=== PATIENT | male | born 1960 | race Caucasian/White ===

== ENCOUNTER → 2017-06-25 | Outpatient (CLI) | payer BC ==
[2017-06-25 15:04] LABS: HCT 53.2 % (39.0-53.0); HGB 17.2 gm/dL (13.0-17.5); MCHC 32.4 g/dL (31.0-37.0); MCV 92.8 fL (80.0-100.0); Platelet Count 256 k/uL (150-450); RBC 5.73 m/uL (4.30-5.90); RDW 15.1 % (11.5-15.5); WBC 7.9 k/uL (3.8-10.6)
[2017-06-25 15:05] LABS: Appearance,Urine Clear (Clear); Bilirubin,Urine Negative (Negative); Blood,Urine Negative (Negative); Color,Urine Light Yellow; Glucose,Urine (UA) Negative (Negative); Ketones,Urine Negative (Negative); Leukocyte Esterase,Urine Negative (Negative); Nitrite,Urine Negative (Negative); PH, Urine 5.5 (5.0-8.0); Protein,Urine Negative (Negative); Specific Gravity,Urine 1.005 (1.001-1.035); Urobilinogen,Urine <2.0 mg/dL (<2.0)
[2017-06-25 15:15] LABS: Partial Thromboplastin Time 24.1 sec (22.0-30.0); Prothrombin Time 10.1 sec (9.0-12.0)
[2017-06-25 15:24] LABS: ALT 36 U/L (21-72); AST 22 U/L (17-59); Albumin 4.6 g/dL (3.5-5.0); Alkaline Phosphatase 77 U/L (38-126); Anion Gap 13 mmol/L; Blood Urea Nitrogen 16 mg/dL (9-20); Calcium 10.3 mg/dL (8.4-10.2); Carbon Dioxide 30 mmol/L (22-30); Chloride 98 mmol/L (98-107); Glucose 113 mg/dL (74-99); Sodium 141 mmol/L (137-145); Total Bilirubin 0.4 mg/dL (0.2-1.3); Total Protein 7.9 g/dL (6.3-8.2)
== END | disposition home or self-care (01) ==
LOC: LABWHC1 14:02
PROVIDERS: ATTEND Orthopaedic Surgery
DX: Z01.818 Encounter for other preprocedural examination (principal); Z01.812 Encounter for preprocedural laboratory examination
CPT/HCPCS: 80053; 81003; 85027; 85610; 85730; 93005

== ENCOUNTER → 2017-07-06 | Outpatient (CLI) | payer BC | END | disposition home or self-care (01) | LOC: LABPAT 14:40 | PROVIDERS: ATTEND Orthopaedic Surgery | DX: Z01.812 Encounter for preprocedural laboratory examination (principal) | CPT/HCPCS: 87070 ==

== ENCOUNTER → 2017-07-29 | Outpatient (CLI) | payer BC ==
[2017-07-29 15:17] LABS: HCT 49.4 % (39.0-53.0); MCH 29.5 pg (25.0-35.0); MCHC 32.4 g/dL (31.0-37.0); Mean Platelet Volume 6.5; Platelet Count 325 k/uL (150-450); RBC 5.43 m/uL (4.30-5.90); RDW 13.4 % (11.5-15.5); WBC 8.4 k/uL (3.8-10.6)
[2017-07-29 15:34] LABS: ALT 38 U/L (21-72); AST 23 U/L (17-59); Albumin 4.4 g/dL (3.5-5.0); Alkaline Phosphatase 74 U/L (38-126); Anion Gap 13 mmol/L; Blood Urea Nitrogen 20 mg/dL (9-20); Calcium 9.8 mg/dL (8.4-10.2); Carbon Dioxide 27 mmol/L (22-30); Chloride 102 mmol/L (98-107); Glucose 106 mg/dL (74-99); Partial Thromboplastin Time 23.7 sec (22.0-30.0); Potassium 4.3 mmol/L (3.5-5.1); Prothrombin Time 10.2 sec (9.0-12.0); Sodium 142 mmol/L (137-145); Total Bilirubin 0.4 mg/dL (0.2-1.3); Total Protein 7.3 g/dL (6.3-8.2)
[2017-07-29 15:51] LABS: Appearance,Urine Clear (Clear); Bilirubin,Urine Negative (Negative); Blood,Urine Trace (Negative); Color,Urine Yellow; Glucose,Urine (UA) Negative (Negative); Ketones,Urine Negative (Negative); Leukocyte Esterase,Urine Negative (Negative); Nitrite,Urine Negative (Negative); Protein,Urine Negative (Negative); RBC,Urine 1 /hpf (0-5); Specific Gravity,Urine 1.015 (1.001-1.035); Urobilinogen,Urine <2.0 mg/dL (<2.0); WBC,Urine <1 /hpf (0-5)
== END | disposition home or self-care (01) ==
LOC: LABPAT 14:40
PROVIDERS: ATTEND Orthopaedic Surgery
DX: Z01.812 Encounter for preprocedural laboratory examination (principal)
CPT/HCPCS: 36415; 80053; 81001; 85027; 85610; 85730

== ENCOUNTER → 2017-10-14 | Outpatient (CLI) | payer BC ==
--- NOTE | 2017-10-14 08:54 | CT ---
EXAMINATION TYPE: CT lumbar spine w con DATE OF EXAM: 10/14/2017 COMPARISON: Left hip radiographs dated 08/03/2017 HISTORY: Intervertebral disc disorders with radiculopathy. Evaluate L4 lesion. Prior MRI done on outs [facility]. Patient complains of left hip pain and low back pain. History of surgery to the left hip. CT DLP: 970 mGycm Automated exposure control for dose reduction was used. CONTRAST: CT scan of the lumbar is performed with IV Contrast, patient injected with 100 mL of Isovue 300. Enhanced CT of the lumbar spine was performed. Bone and soft tissue window settings are submitted as well as coronal and sagittal reconstructions. FINDINGS: The vertebral bodies maintain normal vertebral body height and alignment. With special atte ntion to the L4 level there is a questionable 6 mm area of lucency on series 3 and 4 image 46 and ser ies 6 image 32 with findings favoring a small vertebral body hemangioma. No suspicious lesion is seen at this level. Small multilevel anterior osteophytes are seen. Intervertebral disc desiccation with vacuum disc dise ase is present at L1-L2 and L2-L3. Evaluation for disc herniation is better performed on MRI as is sp inal canal stenosis. On CT the following findings are made: L1-L2: There is a broad-based disc bulge resulting in mild bilateral neural foraminal narrowing in co mbination with minimal ligamentum flavum buckling and facet arthropathy. This appears to create mild spinal canal stenosis. L2-L3: There is a broad-based disc bulge, minimal facet arthropathy, and minimal ligamentum flavum bu ckling creating mild spinal canal stenosis and mild bilateral neural foraminal narrowing. L3-L4: There is a broad-based disc bulge, facet arthropathy, and ligamentum flavum buckling creating mild to moderate bilateral neural foraminal narrowing and minimal spinal canal stenosis. L4-L5: There is a broad-based disc bulge and facet arthropathy without significant spinal canal steno sis and creating mild bilateral neural foraminal narrowing. L5-S1: Normal disc space height. No disc herniation protrusion or central stenosis. No facet joint arthropathy. No evidence for foraminal encroachment. IMPRESSION: 1. There is no focal suspicious lesion on CT at the L4 level. There is a possible 6 mm left paracentr al hemangioma. MR finding could have represented patchy bone marrow signal, small hemangioma, or othe r etiology. Comparison with the outside MR could be performed if images are submitted. Addendum could be performed for correlation. 2. Moderate multilevel degenerative disc disease crating multilevel mild spinal canal stenosis from L 1 through L4 and variable degrees of neural foraminal narrowing as described above.
== END | disposition home or self-care (01) ==
LOC: RADCTMAIN 07:41
PROVIDERS: ATTEND Orthopaedic Surgery
DX: M51.16 Intervertebral disc disorders with radiculopathy, lumbar region (principal); M48.061 Spinal stenosis, lumbar region without neurogenic claudication; M99.73 Connective tissue and disc stenosis of intervertebral foramina of lumbar region; F17.218 Nicotine dependence, cigarettes, with other nicotine-induced disorders; M25.552 Pain in left hip; Z96.642 Presence of left artificial hip joint
CPT/HCPCS: 72132; Q9967